=== PATIENT | female | born 2005 | race Caucasian/White ===

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

== ENCOUNTER 2024-04-14 05:36 | Emergency (ER) | payer BC, OTHER ==
[~2024-04-14] VITALS: Ht 160 cm; Wt 117.9 kg
[~2024-04-14 05:36] MED LIST changes: +SINGULAIR10 MG PO; +ZYRTEC10 MG PO
[2024-04-14 05:42] VITALS: PULSE 91; RESP 16; TEMP 98.9; O2SAT 98
[2024-04-14 06:09] LABS: CORONAVIRUS COVID-19 AG NEGATIVE (NEGATIVE); INFLUENZA A AG POSITIVE (NEGATIVE); INFLUENZA B AG NEGATIVE (NEGATIVE)
== END 2024-04-14 06:36 | disposition home or self-care (01) ==
LOC: ER 05:42
DX: R05.9 Cough, unspecified (principal); J10.1 Influenza due to other identified influenza virus with other respiratory manifestations; Z11.52 Encounter for screening for COVID-19
CPT/HCPCS: 99282

== ENCOUNTER 2024-04-19 11:51 | Emergency (ER) | payer BC ==
[~2024-04-19] VITALS: Ht 157.5 cm; Wt 120.2 kg
[2024-04-19 13:42] VITALS: PULSE 88; RESP 16; TEMP 98.4; O2SAT 100
[2024-04-19] MEDS ORDERED: DOXYCYCLINE HY100 MG PO (14:53)
[2024-04-19] MEDS ORDERED: CEPHALEXIN500 MG PO (14:53)
== END 2024-04-19 14:30 | disposition home or self-care (01) ==
LOC: ER 13:49
DX: L03.211 Cellulitis of face (principal); R05.9 Cough, unspecified; D64.9 Anemia, unspecified; F41.9 Anxiety disorder, unspecified; F32.A Depression, unspecified
CPT/HCPCS: 99282

== ENCOUNTER 2024-10-21 18:32 | Emergency (ER) | payer SELFPAY ==
[~2024-10-21] VITALS: Ht 157.5 cm; Wt 120.2 kg
[~2024-10-21 18:32] MED LIST changes: +CEPHALEXIN500 MG PO; +DOXYCYCLINE HY100 MG PO
[2024-10-21 20:30] LABS: CORONAVIRUS COVID-19 AG NEGATIVE (NEGATIVE)
[2024-10-21] MEDS ORDERED: AZITHROMYCIN250 MG PO (21:26)
[2024-10-21] MEDS ORDERED: PREDNISONE20 MG PO (21:26)
[2024-10-21] MEDS ORDERED: VENTOLIN HFA18 GM INH (21:26)
[2024-10-21 21:51] VITALS: PULSE 103; RESP 16; TEMP 98.8; O2SAT 100
== END 2024-10-21 21:53 | disposition home or self-care (01) ==
LOC: ER 18:43
DX: J06.9 Acute upper respiratory infection, unspecified (principal)
CPT/HCPCS: 99283